=== PATIENT | female | born 1980 | race Caucasian/White ===

== ENCOUNTER → 2016-10-29 | Outpatient (CLI) | payer OTHER ==
--- NOTE | 2016-10-29 15:29 | MAMMOGRAPHY REPORT ---
ULTRASOUND OF BOTH BREASTS: 10/29/2016 CLINICAL HISTORY: 36-year-old woman with a 2 week history of a palpable mass in the right lower oute r quadrant. No skin changes, focal pain or nipple discharge. Family history of breast cancer = mat ernal aunt. Patient is a proximately 5 weeks and therefore mammography was deferred. COMPARISON: No prior exams were available for comparison. FINDINGS: Targeted real-time high-resolution sonographic evaluation was performed in the area of pa lpable lump pointed out by the patient. On palpation, there is a firm mobile 3 cm mass. On ultraso und in the 8:00 right breast, 4 cm from the nipple, there is a lobulated parallel anechoic cyst with posterior acoustic enhancement, measuring 21.2 x 14.1 x 25.8 mm. No suspicious solid mass is ident ified. IMPRESSION: ACR BI-RADS CATEGORY 2: BENIGN The palpable lump in the 8:00 right breast correlates with an anechoic benign simple cyst measuring 25.8 mm on ultrasound. No further imaging workup is needed at this time. These results and recommendations were discussed with the patient at the time of the exam. Thelma Boothe M.D. ay/:10/29/2016 11:36:25 Attending Technologist: Tolu VAZQUEZ(R)(M), [facility] Gas Engine Repairer: Dr. Thelma Boothe, [facility] letter sent: Normal 1/2 BI-RADS Code: ACR BI-RADS Category 2: Benign
== END | disposition home or self-care (01) ==
LOC: C.MAMM 11:15
PROVIDERS: ATTEND Nurse Practitioner Obstetrics & Gynecology
DX: N60.01 Solitary cyst of right breast (principal)

== ENCOUNTER → 2016-11-12 | Outpatient (CLI) | payer BC, OTHER ==
[2016-11-12 13:52] LABS: URINE APPEARANCE CLEAR (CLEAR); URINE BILIRUBIN NEG (NEG); URINE COLOR YELLOW; URINE NITRITE NEG (NEG); URINE PH 6.5 (4.5-7.5); URINE SPECIFIC GRAVITY 1.019 (1.000-1.030); UROBILINOGEN NEG (NEG)
[2016-11-12 13:55] LABS: MANUAL MICROSCOPIC REQUIRED? NO; REVIEW REQ? NO
== END | disposition home or self-care (01) ==
LOC: C.LABSPEC 13:14
PROVIDERS: ATTEND Obstetrics & Gynecology
DX: Z34.01 Encounter for supervision of normal first pregnancy, first trimester (principal)

== ENCOUNTER → 2016-11-19 | Outpatient (CLI) | payer BC ==
[2016-11-19 12:28] LABS: BASO % 0.3 %; BASO ABS # 0.03 K/uL (0-0.2); COMPLETE YES; EOS % 1.9 %; HEMATOCRIT 37.9 % (37-47); IG% 0.3 %; LYMPH % 15.8 %; LYMPH ABS # 1.53 K/uL (1.2-3.4); MEAN CELL VOLUME 100.5 fL (80-100); MEAN CORPUSCULAR HEMOGLOBIN 33.7 pg (25-34); MEAN CORPUSCULAR HGB CONC 33.5 g/dl (32-36); MEAN PLATELET VOLUME 9.8 fL (7.4-10.4); MONO % 5.8 %; NEUT % 75.9 %; PLATELET COUNT 223 K/uL (130-400); RED BLOOD COUNT 3.77 M/uL (4.2-5.4); WHITE BLOOD COUNT 9.67 K/uL (4.8-10.8)
== END | disposition home or self-care (01) ==
LOC: C.LAB1850 10:54
PROVIDERS: ATTEND Obstetrics & Gynecology
DX: Z34.01 Encounter for supervision of normal first pregnancy, first trimester (principal)

== ENCOUNTER → 2016-11-19 | Outpatient (CLI) | payer BC ==
[2016-11-22 11:39] LABS: CHLAMYDIA TRACH RNA*** NOT DETECTED (NOT DETECTED); GC (NEIS GONORRHOEAE)RNA** NOT DETECTED (NOT DETECTED)
== END | disposition home or self-care (01) ==
LOC: C.LABSPEC 13:32
PROVIDERS: ATTEND Obstetrics & Gynecology
DX: Z34.01 Encounter for supervision of normal first pregnancy, first trimester (principal)

== ENCOUNTER → 2017-01-14 | Outpatient (CLI) | payer BC ==
[2017-01-14 13:09] LABS: GTGD 50 Grams
[2017-01-15 14:28] LABS: AFP CONCENTRATION 35.3 NG/ML; AFP MULTIPLE OF MEDIAN 1.01; AFPTS GESTATIONAL AGE 16.1 WEEKS; AFPTS INSULIN DEP DIABETIC? NO; AFPTS MATERNAL WT 138 LBS; ALPHA-FETOPROTEIN RACE CAUCASIAN=W; HISTORY OF NTD NO; REPEAT SAMPLE? NO
== END | disposition home or self-care (01) ==
LOC: C.LAB1850 10:00
PROVIDERS: ATTEND Obstetrics & Gynecology
DX: Z34.02 Encounter for supervision of normal first pregnancy, second trimester (principal)

== ENCOUNTER → 2017-04-10 | Outpatient (CLI) | payer BC ==
[2017-04-10 12:50] LABS: HEMATOCRIT 37.2 % (37-47)
[2017-04-10 14:35] LABS: URINE APPEARANCE CLEAR (CLEAR); URINE BILIRUBIN NEG (NEG); URINE COLOR YELLOW; URINE EPITHELIAL CELL AUTO >30 /lpf (0-5); URINE NITRITE NEG (NEG); URINE PH 7.5 (4.5-7.5); URINE SPECIFIC GRAVITY 1.016 (1.000-1.030); UROBILINOGEN NEG (NEG)
[2017-04-10 14:45] LABS: MANUAL MICROSCOPIC REQUIRED? NO; REVIEW REQ? NO
[2017-04-10 15:04] LABS: GTGD 50 Grams
== END | disposition home or self-care (01) ==
LOC: C.LAB1850 10:28
PROVIDERS: ATTEND Obstetrics & Gynecology
DX: Z34.02 Encounter for supervision of normal first pregnancy, second trimester (principal)

== ENCOUNTER → 2017-04-21 | Outpatient (CLI) | payer BC | END | disposition home or self-care (01) | LOC: C.LAB1850 09:10 | PROVIDERS: ATTEND Obstetrics & Gynecology | DX: O28.1 Abnormal biochemical finding on antenatal screening of mother (principal); Z3A.00 Weeks of gestation of pregnancy not specified ==

== ENCOUNTER → 2017-06-05 | Outpatient (CLI) | payer BC | END | disposition home or self-care (01) | LOC: C.LABSPEC 10:43 | PROVIDERS: ATTEND Obstetrics & Gynecology | DX: Z34.03 Encounter for supervision of normal first pregnancy, third trimester (principal) ==

== ENCOUNTER 2017-07-02 15:12 | Inpatient (IN) | payer BC ==
[~2017-07-02] VITALS: Ht 154.9 cm; Wt 73.6 kg
[2017-07-02] MEDS ORDERED: LACTATED RINGER'S 1000ML 1,000 ML IV PRN (16:36)
[2017-07-02] MEDS ORDERED: LACTATED RINGER'S 1000ML 1,000 ML IV SCH (16:36)
[2017-07-02] MEDS ORDERED: PATIENT'S ALLERGY INFO NEEDS ENTERED SCH (16:45)
[2017-07-02 17:01] LABS: HEMATOCRIT 44.5 % (37-47); HEMOGLOBIN 15.5 g/dL (12.0-16.0); MEAN CELL VOLUME 101.6 fL (80-100); MEAN CORPUSCULAR HEMOGLOBIN 35.4 pg (25-34); MEAN CORPUSCULAR HGB CONC 34.8 g/dl (32-36); MEAN PLATELET VOLUME 10.6 fL (7.4-10.4); PLATELET COUNT 148 K/uL (130-400); RED CELL DISTRIBUTION WIDTH CV 13.3 % (11.5-14.5); RED CELL DISTRIBUTION WIDTH SD 49.5 fL (36.4-46.3); WHITE BLOOD COUNT 16.87 K/uL (4.8-10.8)
[2017-07-02 17:03] VITALS: Ht 154.9 cm; Wt 73.6 kg
[2017-07-02] MEDS ORDERED: PRENTAB26 PO (17:06)
[2017-07-03] VITALS (17 sets, daily range): BP systolic 103–123; BP diastolic 69–85; PULSE 83–97; TEMP 36.4–37.2; O2SAT 95–99
[2017-07-03] MEDS ORDERED: BUPIVACAINE 0.25% 30 ML VIAL ONE (01:13)
[2017-07-03] MEDS ORDERED: EpHEDrine SULFATE INJ 50 MG/ML AMP ONE (01:13)
[2017-07-03] MEDS ORDERED: FENTANYL 2MCG/ML ROPIV 1.25MG/ML 100ML BAG EPI ONE (01:13)
[2017-07-03] MEDS ORDERED: FENTANYL CITRATE INJ 50 MCG/1 ML 2 ML VIAL ONE (01:14)
[2017-07-03] MEDS ORDERED: NALOXONE HCL INJ 1 MG in SODIUM CHLORIDE 0.9% 1000ML 1,000 ML IV PRN ×2 (02:03→06:34)
[2017-07-03] MEDS ORDERED: LACTATED RINGER'S 1000ML 500 ML IV PRN ×2 (02:03→06:34)
[2017-07-03] MEDS ORDERED: DiphenhydrAMINE HCL 50 MG/ML VIAL IV PRN ×4 (02:15→23:30)
[2017-07-03] MEDS ORDERED: EpHEDrine SULFATE INJ 50 MG/ML AMP IV PRN ×3 (02:15→06:45)
[2017-07-03] MEDS ORDERED: NALBUPHINE HCL INJ 10 MG/ML 1ML AMP IV PRN ×2 (02:15→06:45)
[2017-07-03] MEDS ORDERED: FENTANYL 2MCG/ML ROPIV 1.25MG/ML 100ML BAG EPI PRN (02:15)
[2017-07-03] MEDS ORDERED: NALOXONE HCL INJ 0.4 MG/1 ML VIAL/CARP IV PRN (02:15)
[2017-07-03] MEDS ORDERED: CEFAZOLIN IV 2,000 MG in SYRINGE 0 ML IV STA (04:14)
[2017-07-03] MEDS ORDERED: CITRIC ACID/SODIUM CITRATE 15 ML UDC PO ONE (04:15)
[2017-07-03] MEDS ORDERED: LIDOCAINE/EPINEPHRINE 2% 1:200,000 20 ML SDV ONE (04:46)
[2017-07-03] MEDS ORDERED: OXYTOCIN INJ 10 UNITS/ML VIAL ONE (05:43)
[2017-07-03] MEDS ORDERED: ONDANSETRON INJ 2 MG/ML 2 ML VIAL ONE (05:43)
[2017-07-03] MEDS ORDERED: MoRPHine SULFATE PF 1 MG/ML 10 ML AMP/VIAL ONE (05:45)
[2017-07-03] MEDS ORDERED: LACTATED RINGER'S 1000ML 1,000 ML IV SCH (05:51)
--- NOTE | 2017-07-03 05:53 | [facility] Post Operative Brief Note ---
Immediate Operative Summary Operative Date Jul 03, 2017. Pre-Operative Diagnosis 1. Failure to progress 2. Failure to descend Post-Operative Diagnosis Same as preop Procedure(s) Performed section Surgeon Dr. Orta Microbiology Technician Surgeon(s) Michaelle Vail RN Estimated Blood Loss 600ML Findings Normal anatomy Specimens 1. Cord blood 2. Cord blood gases 3. Placenta- hold Drains Eisenberg catheter Anesthesia epidural Complication(s) None Disposition L&D
--- NOTE | 2017-07-03 05:56 | [facility] Operative Report ---
Operative Report Operative Date Jul 03, 2017. Pre-Operative Diagnosis 1. Failure to progress 2. Failure to descend Post-Operative Diagnosis Same as preop Procedure(s) Performed section Surgeon Dr. Orta Agile Qa Tester Surgeon(s) Michaelle Vail RN Estimated Blood Loss 600ML Findings Patient received 2 g Ancef prior to the procedure prepped and draped in supine position with a leftward tilt for catheter placed by nursing pickups with teeth used to test incision area and this was found to be adequate Pfannenstiel incision was scalpel dissected down to subcutaneous fat to the fashion the midline's curved Mayos used to dissect the fascia laterally and then fashion released superiorly and inferiorly from the rectus muscles Rectus muscles were then perineal cavity entered in a superior location and then opening expanded to allow exposure bladder retractor placed Metzenbaums used to dissect away the bladder flap then a low transverse incision made on the low segment of the uterus entry into the uterine cavity done bluntly with a hemostat uterine hysterotomy site then expanded bluntly with the naphthalene still operator's fingers baby delivered by flexion at was in occiput posterior position fluid was clear no nuchal cord live vigorous infant. Baby was delivered without excessive force using only gentle traction Cord clamped and cut cord gases obtained cord blood obtained placenta removed uterus exteriorized IV Pitocin started we ensured all placental tissue removed from the uterus uterus then closed in the usual fashion a running 0 Monocryl and a second reinforcing 0 Monocryl first layer locked Ovaries appeared normal as did the uterus After generous irrigation and suction of the cul-de-sac and bladder flap regions uterus was placed back in the peritoneal cavity on reinspection hemostasis excellent At this stage retractors removed fascia closed with 0 Vicryl suture obtaining his fat irrigated and closed with 3-0 Vicryl and skin closed with 4-0 silk particular Monocryl incision Steri-Strips urine was clear at the end of the procedure sponge and instrument counts correct Specimens 1. Cord blood 2. Cord blood gases 3. Placenta- hold Drains Eisenberg catheter Anesthesia epidural Complication(s) None Disposition L&D I attest to the content of the Intraoperative Record and any orders documented therein. Any exceptions are noted below.
[2017-07-03] MEDS ORDERED: SENNA 8.6 MG TAB PO PRN (06:00)
[2017-07-03] MEDS ORDERED: MAGNESIUM HYDROXIDE SUSP 30 ML UDC PO PRN (06:00)
[2017-07-03] MEDS ORDERED: LANOLIN OINT EXT PRN (06:00)
[2017-07-03] MEDS ORDERED: SUPERCREAM 0.870 % 15GM JAR EXT PRN (06:00)
[2017-07-03] MEDS ORDERED: PROMETHAZINE HCL INJ 25 MG in SODIUM CHLORIDE 0.9% 50ML 50 ML IV PRN (06:00)
[2017-07-03] MEDS ORDERED: HYDROCORTISONE ACETATE 25 MG SUPP PR PRN (06:00)
[2017-07-03] MEDS ORDERED: BENZOCAINE 20% AER SPR 82.5 GM CAN EXT PRN (06:00)
[2017-07-03] MEDS ORDERED: CEFAZOLIN IV 2,000 MG in DEXTROSE 5% 50ML 50 ML IV SCH (06:00)
--- NOTE | 2017-07-03 06:32 | Anesthesiology Progress Note ---
Anesthesia Post Op Note Date & Time Jul 03, 2017 at 06:32 Vital Signs Pain Intensity: 0.0 Notes Mental Status: alert / awake / arousable, participated in evaluation Pt Amnestic to Procedure: Yes Nausea / Vomiting: adequately controlled Pain: adequately controlled Airway Patency, RR, SpO2: stable & adequate BP & HR: stable & adequate Hydration State: stable & adequate Neuraxial Anesthesia: was administered, sensory block is resolving Anesthetic Complications: no major complications apparent
--- NOTE | 2017-07-03 06:33 | Anesthesia Procedure Note ---
Anesthesia Epidural Removal Nt Date & Time Jul 03, 2017 at 06:33 Vital Signs Pain Intensity: 0.0 Notes Mental Status: alert / awake / arousable, participated in evaluation Nausea / Vomiting: adequately controlled Pain: adequately controlled Airway Patency, RR, SpO2: stable & adequate BP & HR: stable & adequate Hydration State: stable & adequate Neuraxial Anesthesia: was administered, sensory block is resolving Anesthetic Complications: no major complications apparent, pt satisfied with anesthetic care Epidural: removed without complications, with tip intact
[2017-07-03] MEDS ORDERED: SODIUM CHLORIDE 0.9% 1000ML 1,000 ML IV PRN (06:34)
[2017-07-03] MEDS ORDERED: NALOXONE HCL INJ 0.08 MG in SYRINGE 1.8 ML IV PRN (06:34)
[2017-07-03] MEDS ORDERED: MEPERIDINE HCL 25 MG/ML CARP IV PRN ×2 (06:45)
[2017-07-03] MEDS ORDERED: ONDANSETRON INJ 2 MG/ML 2 ML VIAL IV PRN ×2 (06:45→23:30)
[2017-07-03] MEDS ORDERED: DC INTRASPINAL MORPHINE SCH (06:45)
[2017-07-03] MEDS ORDERED: MoRPHine SULFATE PF 1 MG/ML 10 ML AMP/VIAL EPI PRN (06:45)
[2017-07-03] MEDS ORDERED: ATROPINE SULFATE 0.1 MG/ML 5ML SYR IV PRN (06:45)
[2017-07-03] MEDS ORDERED: KETOROLAC TROMETHAMINE 30 MG/ML VIAL IV. PRN ×2 (06:45→23:30)
[2017-07-03] MEDS ORDERED: FENTANYL CITRATE INJ 50 MCG/1 ML 2 ML VIAL IV PRN (06:45)
[2017-07-03] MEDS ORDERED: LABETALOL HCL IV 5 MG/ML 20ML IV PRN (06:45)
[2017-07-03] MEDS ORDERED: NALOXONE HCL 0.4 MG/1 ML VIAL/CARP IV PRN (06:45)
[2017-07-03] MEDS ORDERED: HYDROmorphone INJ 1 MG/ML SYR IV PRN (06:45)
[2017-07-03] MEDS ORDERED: NO NARCOTICS OR SEDATIVES SCH (06:45)
[2017-07-03] MEDS ORDERED: MoRPHine SULFATE 2 MG/ML CARP IV PRN (06:45)
[2017-07-03] MEDS: PRENATAL VITAMIN TAB PO SCH (11:09)
[2017-07-03] MEDS: SIMETHICONE 80 MG CHEW PO SCH ×3 (11:09→19:31)
[2017-07-03] MEDS: DOCUSATE SODIUM 100 MG CAP PO SCH ×2 (11:09→19:31)
[2017-07-03] MEDS: OXYTOCIN INJ 20 UNITS in LACTATED RINGER'S 1000ML 1,000 ML IV SCH ×2 (11:26→18:47)
[2017-07-03] MEDS ORDERED: ZOLPIDEM TARTRATE 5 MG TAB PO PRN (23:30)
[2017-07-03] MEDS ORDERED: MEPERIDINE HCL 50 MG/ML CARP IV PRN ×2 (23:30)
[2017-07-04] VITALS: BP 123/72; PULSE 81; TEMP 37.2; O2SAT 96
[2017-07-04 04:45] VITALS: BP 104/71; PULSE 85; TEMP 37.4; O2SAT 96
[2017-07-04] MEDS: IBUPROFEN 600 MG TAB PO PRN ×4 (04:55→21:21)
[2017-07-04] MEDS: OXYCODONE HCL IR 5 MG TAB (IMMEDIATE RELEASE) PO PRN ×4 (04:55→21:21)
--- NOTE | 2017-07-04 06:05 | OB/GYN Progress Note ---
FEED PREPARATION OPERATOR Progress Note Date of Service Jul 04, 2017. Subjective conversation w/ patient, physical exam, chart review, lab review, review of studies Ambulation: ambulating normally Voiding: no voiding problems (taylor removed lastnight, has not voided this am ) Passing Gas: Yes Diet Tolerance: Regular Diet Lochia: Moderate Feeding Type: Breast Feeding Pain: 4/10 pain at the incision, controlled with oxycodone Review of Systems Constitutional: No fever, No chills, No sweats Respiratory: No cough, No sputum, No wheezing Cardiac: No chest pain, No edema, No palpitations Abdomen: No pain, No nausea, No vomiting, No diarrhea Female : No dysuria Objective Vital Signs Date Time Temp Pulse Resp B/P (MAP) Pulse Ox O2 Delivery O2 Flow Rate FiO2 07/04/17 04:45 37.4 85 17 104/71 (82) 96 Room Air 07/04/17 00:00 96 Room Air 07/04/17 00:00 37.2 81 19 123/72 (89) Room Air 07/03/17 22:35 18 99 07/03/17 21:35 16 98 07/03/17 20:35 18 98 07/03/17 19:30 18 95 07/03/17 19:30 36.6 83 18 103/70 (81) 95 Room Air 07/03/17 18:35 17 99 07/03/17 17:35 18 97 07/03/17 16:35 16 99 07/03/17 15:35 Room Air 07/03/17 15:35 18 99 07/03/17 15:19 37.2 86 20 123/85 (98) 99 Room Air 07/03/17 14:45 18 97 07/03/17 13:40 18 99 07/03/17 12:37 20 99 07/03/17 11:40 18 97 07/03/17 11:40 Room Air 07/03/17 11:40 37.0 96 18 112/78 (89) 97 Room Air 07/03/17 10:45 20 96 07/03/17 09:40 36.4 88 20 119/79 (92) 97 Room Air 07/03/17 09:30 36.4 88 18 119/79 (92) 97 Room Air 07/03/17 09:30 18 97 12/28/17 08:45 37.0 97 18 114/69 (84) 97 Room Air 07/03/17 08:45 18 97 07/03/17 08:45 Room Air Physical Exam General Appearance: WELL-APPEARING, WD/WN, NO APPARENT DISTRESS Respiratory/Chest: chest non-tender, lungs clear, normal breath sounds, no respiratory distress, no accessory muscle use Cardiovascular: regular rate, rhythm, no edema, no murmur Abdomen: normal bowel sounds, + tenderness Fundus: Firm, Relation to Umbilicus (at the level of the umbilcus) Extremities: no pedal edema, no calf tenderness Laboratory Results Last 24 Hours Test 07/04/17 06:00 Assessment and Plan Post-Op Day Number: 1 Continue Routine Care: 36 yo female now 1, post op day 2 delivered via at 40.3 wk gestation Pt is GBS-/RI/O+ Vital reviewed and WNL. Hgb 15.5 at admission, no signs or sx of anemia. Dressing is clean and intact. Patient is passing gas and taylor has removed. Continue post care; 1. Monitor lochia 2. Control pain; Tylenol and Ibuprofen PRN 3. Encourage ambulation, continue SCD's 4. Support 5. Monitor I/O's Resident Physician Supervision Note: I was present with Dr. Thomas during the history and exam. I discussed the case with the resident and agree with the findings and plan as documented in the note. Any exceptions or clarifications are listed here: doing ok, pain control adequate. has not voided yet. +flatus, ate regular diet last night. . ff 2 down and appropriately tender. incision c/d/i with steris. ext nt calves. routine care today, cbc noted. await void, ambulate, po pain meds. Documented By: Sugar Phillip
[2017-07-04 07:23] LABS: BASO % 0.2 %; BASO ABS # 0.02 K/uL (0-0.2); EOS % 0.2 %; EOS ABS # 0.03 K/uL (0-0.5); HEMATOCRIT 35.1 % (37-47); HEMOGLOBIN 12.1 g/dL (12.0-16.0); IG# 0.05 K/uL (0.00-0.02); LYMPH % 12.3 %; LYMPH ABS # 1.56 K/uL (1.2-3.4); MEAN CELL VOLUME 103.5 fL (80-100); MEAN CORPUSCULAR HEMOGLOBIN 35.7 pg (25-34); MEAN CORPUSCULAR HGB CONC 34.5 g/dl (32-36); MONO % 7.2 %; MONO ABS # 0.91 K/uL (0.11-0.59); NEUT % 79.7 %; NEUT ABS # 10.11 K/uL (1.4-6.5); PLATELET COUNT 122 K/uL (130-400); RED CELL DISTRIBUTION WIDTH CV 13.9 % (11.5-14.5); RED CELL DISTRIBUTION WIDTH SD 52.9 fL (36.4-46.3); WHITE BLOOD COUNT 12.68 K/uL (4.8-10.8)
[2017-07-04] MEDS: SIMETHICONE 80 MG CHEW PO SCH ×4 (07:33→21:04)
[2017-07-04] MEDS: DOCUSATE SODIUM 100 MG CAP PO SCH ×2 (07:33→21:04)
[2017-07-04] MEDS: PRENATAL VITAMIN TAB PO SCH (07:33)
[2017-07-04 07:35] VITALS: O2SAT 96
[2017-07-04 16:00] VITALS: BP 102/71; PULSE 83; TEMP 37.2
--- NOTE | 2017-07-04 21:06 | Discharge Instructions ---
Discharge Instructions Date of Service Jul 04, 2017. Admission Reason for Admission: R/O Labor Discharge Discharge Diagnosis / Problem: delivery Discharge Goals Goal(s): Routine recovery after Medications Continue Dispensed Medications: supercream, dermaplast, tucks, lansinoh Activity Recommendations Activity Limitations: per Instructions/Follow-up section . Instructions / Follow-Up Instructions / Follow-Up ACTIVITY RECOMMENDATIONS: * Gradual return to full activity over the next 2-3 weeks. * No lifting - nothing heavier than baby over the next 2-3 weeks. * Do not engage in vigorous exercise, sexual activity or sports until cleared by your physician. * Do not drive or operate any motorized equipment until cleared by your physician. * You may shower/bathe daily. MEDICATIONS: For discomfort or pain, you may use Acetaminophen (Tylenol), Ibuprofen (Advil), or Naproxen (Aleve) following the package directions. For constipation you may use Colace following the package directions. BREAST CARE: If you are not breast feeding: * Wear a supportive bra 24 hours a day for one to two weeks. * Avoid stimulating your breasts and nipples as much as possible during the first few weeks after delivery. * When taking a shower, have the warm water hit your back, not breasts. * When your breasts feel full, apply ice packs. Usually three to four times a day helps ease the discomfort. * Take a mild pain medication (Tylenol / Motrin) when you are uncomfortable. If breast feeding: * Use breast milk to lubricate nipples. Lansinoh cream may be used for sore nipples. You do not need to remove cream prior to breast feeding. If using a different brand of cream, check the label for directions regarding removal of cream prior to nursing. * Wear a supportive bra. * If having problems with breasts or breast feeding, call a independent crop consultant or your health care provider. SPECIAL CARE INSTRUCTIONS: When you are discharged from the hospital, it is important for you to follow the instructions listed below: * During the first week at home, you should be able to care for yourself and your baby. In addition, the usual light household activities are encouraged. * Limit your activities to the way you feel. Do not try to clean the house or move furniture. Be sensible. * If you actively engage in sports and have done so up until the time of your delivery, you may resume these activities as soon as you feel able. This may take up to one month or even longer. Use good judgment. * Continue to take your vitamins for at least six weeks after the of your baby. * Your diet need not be limited unless you were on a special diet before your delivery. Breast-feeding mothers need around 2500 calories per day and at least 64-80 ounces of fluid per day (8 to 10 glasses). * You should eat foods from the four major food groups. Crash diets or fad diets are to be avoided. Eating lean meats, fresh fruits and vegetables, low-fat dairy products, high fiber foods and a regular exercise program, will help you get back to your pre- weight without putting your health at risk. * Constipation is sometimes a problem after delivery. Take a mild laxative as needed. If breast feeding, Milk of Magnesia is acceptable to use. You may use a suppository or Fleets enema. * A daily shower or tub bath is suggested. Wash incision daily with warm soapy water and pat dry. It doesn't need to be covered unless drainage is present. * A bloody vaginal discharge will usually continue until around four weeks . A small amount of bleeding may continue for as long as six weeks. Vaginal discharge changes from the bright red bleeding after delivery to pink then brownish and finally yellowish-pink before becoming white and disappearing. * Bleeding may increase with activity. Your first period may come in 4-8 weeks. If you are breast feeding, your period may be delayed even longer. * Palco (sex) can begin whenever both you and your partner feel comfortable and do not have any form of genital infection. It is recommended that you wait at least six weeks for internal and external healing to occur. If you have questions, please talk to your health care practitioner. A condom should be used to prevent infection and . * Foreplay, gentle intercourse and lubrication is very important the first several times to prevent pain. A water-based lubricant such as K-Y jelly or Astroglide may be used. * If you have RH negative blood and your baby is RH positive, you will receive RHOGAM by injection prior to discharge. The nurse will give you a card to keep with you that has the date and place that you received RHOGAM after delivery. * During your care, you had a Rubella screen done to check for the presence of rubella antibodies in your blood. If your test was negative, you will receive a Rubella vaccine prior to discharge. This vaccine may cause a fever, soreness at the injection site and flu-like symptoms. If these symptoms persist, notify your health care practitioner. is not advised for one month after a Rubella vaccine. * Verbalizes understanding of car seat law as reviewed with patient nursing. * Car Seat hand-out given and reviewed with patient by nursing. * Shaken baby information reviewed with patient by nursing. Call you doctor if: * Heavy bleeding (saturating several pads an hour) or passing clots the size of your fist. * A fever >101 degrees F (38.3 degrees C) on two occasions four hours apart and /or chills. * Unusual pain in the pelvic or vaginal areas. * Call the doctor for any increased redness, drainage or swelling around the incision and any pain unrelieved by prescribed pain medication. * "Baby Blues" lasting longer than two weeks. If you have any questions or concerns, call your health care practitioner at . FOLLOW UP VISIT: * Please call the office at to schedule a 6 week examination. It is important you keep this appointment. It is important for you to make arrangements for either yearly or twice yearly check-ups thereafter. Current Hospital Diet Patient's current hospital diet: Vegetarian Diet Discharge Diet Recommended Diet: Regular OB Diet Procedures Procedures Performed: section Pending Studies Studies pending at discharge: no Medical Emergencies . Who to Call and When: Medical Emergencies: If at any time you feel your situation is an emergency, please call [phone] immediately. . Non-Emergent Contact Non-Emergency issues call your: Executive Secretary Social Welfare . . "Provider Documentation" section prepared by Placido Thomas. . VTE Core Measure Inpt VTE Proph given/why not?: SCD's
[2017-07-04] MEDS ORDERED: BISACODYL 5 MG TABEC PO ONE (22:00)
[2017-07-04 23:45] VITALS: BP 103/66; PULSE 62; TEMP 36.7; O2SAT 97
[2017-07-05] MEDS: IBUPROFEN 600 MG TAB PO PRN ×5 (02:44→20:22)
[2017-07-05] MEDS: OXYCODONE HCL IR 5 MG TAB (IMMEDIATE RELEASE) PO PRN ×5 (02:44→20:23)
[2017-07-05 07:30] LABS: HEMATOCRIT 35.1 % (37-47); HEMOGLOBIN 11.7 g/dL (12.0-16.0)
[2017-07-05 07:40] VITALS: BP 101/68; PULSE 62; TEMP 36.5
[2017-07-05] MEDS: DOCUSATE SODIUM 100 MG CAP PO SCH ×2 (08:00→20:22)
--- NOTE | 2017-07-05 08:19 | OB/GYN Progress Note ---
SENIOR MAINFRAME PROGRAMMER ANALYST Progress Note Date of Service Jul 05, 2017. Subjective conversation w/ patient, conversation w/ family, physical exam, chart review, lab review Ambulation: ambulating normally Voiding: no voiding problems Passing Gas: Yes Diet Tolerance: Regular Diet Lochia: Small Feeding Type: Breast Feeding Pain: moderate pain at incision Review of Systems Constitutional: No fever, No chills, No sweats Respiratory: No cough, No shortness of breath Cardiac: No chest pain, No palpitations Abdomen: No pain, No nausea, No diarrhea Female : No dysuria Objective Vital Signs Date Time Temp Pulse Resp B/P (MAP) Pulse Ox O2 Delivery O2 Flow Rate FiO2 07/04/17 23:45 97 Room Air 07/04/17 23:45 36.7 62 16 103/66 (78) 97 Room Air 07/04/17 17:05 Room Air 07/04/17 16:00 37.2 83 18 102/71 (81) Room Air Physical Exam General Appearance: WELL-APPEARING, WD/WN, NO APPARENT DISTRESS Respiratory/Chest: chest non-tender, lungs clear Cardiovascular: regular rate, rhythm, no murmur Abdomen: normal bowel sounds Fundus: Firm, Relation to Umbilicus (2 below ) Incision Description: Clean, Dry & Intact, Erythema (superior to incision ), Ecchymosis (surround incision ) Laboratory Results Last 24 Hours Test 07/05/17 07:17 Hemoglobin 11.7 g/dL Hematocrit 35.1 % Assessment and Plan Post-Op Day Number: 2 Continue Routine Care: 36 yo femal now 1 delivered via C section at 40.3 wks Postop day 2 Pt is GBS-/RI/O+ Patient is clinically doing well, vitals and labs were reviewed and stable. Moderate ecchymosis surrounding incision and erythema superior to incision. Plan; 1. Monitor lochia, control pain, ambulate, support 2. Monitor incision; demarcated the erythema with ink 3. Prepare for possible dc tomorrow Resident Physician Supervision Note: I interviewed and examined the patient. Discussed with Dr. Thomas and agree with findings and plan as documented in the note. Any exceptions or clarifications are listed here: She has brusing under her incision and some swelling of the labia there is also an area of erythema and warmth above the incision. This is marked with a pen and will watch closely. Will continue routine care and work on breast feeding. Documented By: Madelyn Wilson
[2017-07-05] MEDS: PRENATAL VITAMIN TAB PO SCH (08:55)
[2017-07-05] MEDS: SIMETHICONE 80 MG CHEW PO SCH ×4 (08:55→20:21)
[2017-07-05 15:20] VITALS: BP 112/73; PULSE 57; TEMP 36.8
--- NOTE | 2017-07-05 18:18 | NUR ---
At 1800, entered patient's room to introduce self and discuss breast feeding. Mom stated her infant is down 9% and she is very worried because she doesn't want to supplement. She states the feedings are going well and she is in addition hand expressing approx. .5tsp and feeding that to her infant with ea. feeding. She stated she would like to call for next feeding for any assessment, evaluation, or advice. Taylor Barrientos RN, CLC
[2017-07-05] MEDS ORDERED: BISACODYL 10 MG SUPP PR PRN (22:45)
[2017-07-06 00:30] VITALS: BP_SYST 112; BP_SYST 124; BP_DIAS 72; BP_DIAS 82; PULSE 83; PULSE 85; TEMP 36.6; O2SAT 97
[2017-07-06] MEDS: OXYCODONE HCL IR 5 MG TAB (IMMEDIATE RELEASE) PO PRN ×5 (01:56→20:04)
[2017-07-06] MEDS: IBUPROFEN 600 MG TAB PO PRN ×5 (01:56→20:04)
--- NOTE | 2017-07-06 06:50 | Progress Note ---
Subjective Jul 06, 2017. Subjective conversation w/ patient, physical exam Ambulation: ambulating normally Voiding: no voiding problems Passing Gas: Yes Diet Tolerance: Regular Diet Lochia: Moderate Feeding Type: Breast Feeding Pain: controlled Review of Systems Constitutional: No problem reported Respiratory: No problem reported Cardiac: No problem reported Breast: No problem reported Abdomen: No problem reported Female : No problem reported Objective Vital Signs Date Time Temp Pulse Resp B/P (MAP) Pulse Ox O2 Delivery O2 Flow Rate FiO2 07/06/17 00:30 Room Air 07/06/17 00:30 36.6 85 16 124/82 (96) 97 Room Air 07/05/17 15:20 36.8 57 20 112/73 (86) Room Air 07/05/17 15:20 Room Air 07/05/17 07:40 36.5 62 20 101/68 (79) Room Air 07/05/17 07:40 Room Air Physical Exam General Appearance: WELL-APPEARING, NO APPARENT DISTRESS Respiratory/Chest: normal breath sounds Cardiovascular: regular rate, rhythm Abdomen: non tender, soft, + pertinent finding (small area of erythema, circled from yesterday, not larger. ) Fundus: Firm Incision Description: Clean, Dry & Intact Extremities: normal inspection Laboratory Results Last 24 Hours Test 07/05/17 07:17 Hemoglobin 11.7 g/dL Hematocrit 35.1 % Assessment and Plan Post-Op Day#: 3 Continue Routine Care: POD#3 doing well. Will plan to discharge home today. Discharge instructions reviewed. RTO 6w.
[2017-07-06] MEDS ORDERED: RXC5 PO (06:52)
[2017-07-06 07:20] VITALS: BP 123/86; PULSE 63; TEMP 36.5; O2SAT 95
[2017-07-06] MEDS: PRENATAL VITAMIN TAB PO SCH (10:19)
[2017-07-06] MEDS: SIMETHICONE 80 MG CHEW PO SCH ×4 (10:19→20:03)
[2017-07-06] MEDS: DOCUSATE SODIUM 100 MG CAP PO SCH ×2 (10:19→20:03)
[2017-07-06 15:00] VITALS: BP 90/60; PULSE 73; TEMP 36.7
[2017-07-06 15:20] VITALS: BP 123/87; PULSE 75; TEMP 36.6
--- NOTE | 2017-07-06 17:20 | NUR ---
At 12:25 mother put on her call light seeking assistance with breast feeding. Patient stated she had a challenging night with her either sleeping or crying at the breast. Assessed mom's breasted and they appeared full and firm, her nipples were slightly flat today. Discussed with mom her milk is transitional at this point and it appears her milk is coming in and her breasts are full. Discussed massaging breasts before attempting latch in addition to either hand expressing or pumping for a few min. to soft her breasts prior to feeding. Mother attempted both sides after massaging and hand expression, 3 positions on both sides and her infant would take a few sucks and cry. At this time, suggested mom finger feed the breast milk, 30cc, she had pumped earlier today and try again for next feeding. Assured mother she is doing everything right and that can be done at this time. Encouraged mom to continue with skin to skin and call for assistance for next feed.
--- NOTE | 2017-07-06 18:42 | NUR ---
Gave hand out on reverse pressure softening and engorgement from [email or web address]
--- NOTE | 2017-07-06 20:14 | NUR ---
Patient to nesting at this time. Nesting consent in chart. "Nesting Mom" sign on door. Patient and FOB understand nesting status.
--- NOTE | 2017-07-08 09:01 | DISCHARGE SUMMARY ---
Anne had a section for failure to progress on July 03 early in the morning. She had been admitted on the in labor. Operative note has been dictated that was uncomplicated. COURSE IN THE HOSPITAL: By July 06, she met criteria. At this stage, she was on postop day #3. SUBJECTIVE: The patient was ambulating, no voiding problems, passing gas, tolerating a regular diet, minimal bleeding and no extremity pain. PHYSICAL EXAMINATION: VITAL SIGNS: Stable. She is afebrile. CHEST: Clear. ABDOMEN: Soft, nontender. Incision clean, dry and intact. Fundus firm. IMPRESSION AND PLAN: Postop day #3, discharged home by Dr. Sena.
== END 2017-07-06 20:15 | disposition home or self-care (01) | DRG 766 ==
LOC: C.LD 15:12 → C.OPB 15:12 → C.LD 16:36 → C.OBG 07-03 08:47
PROVIDERS: ADMIT Obstetrics & Gynecology; ATTEND Obstetrics & Gynecology
PROC: 10D00Z1 Extraction of Products of Conception, Low, Open Approach (ICD-10-PCS; principal; 2017-07-03 05:10)
DX: O62.1 Secondary uterine inertia (principal); Z3A.40 40 weeks gestation of pregnancy; Z37.0 Single live birth